=== PATIENT | male | born 1965 | race American Indian/Alaskan Native ===

== ENCOUNTER 2019-05-09 17:55 | Emergency (ER) | payer SELFPAY ==
[2019-05-09 18:02] VITALS: BP 135/96; PULSE 98
[2019-05-09] MEDS ORDERED: Tetracaine HCl/PF 0.5% 4 ML Bottle EYELF ONE (18:39)
[2019-05-09] MEDS ORDERED: Balanced Salt Solution Ophth Irrig 30 ML Bottle EYELF ONE (18:41)
[2019-05-09] MEDS ORDERED: Bacitracin/Neomycin/Polymyxin B Oint 0.9 GM U/D Packet TOP ONE (19:44)
[2019-05-09] MEDS ORDERED: Bacitracin/Polymyxin B Ophth Oint 3.5 GM Tube ONE (19:54)
--- NOTE | 2019-05-09 20:33 | EDM.PDOC ---
ED HPI GENERAL MEDICAL PROBLEM - General Chief Complaint: ENT Problem Stated Complaint: eye redness, blurred vision Time Seen by Provider: 05/09/19 18:20 Source of Information: Reports: Patient History Limitations: Reports: No Limitations - History of Present Illness INITIAL COMMENTS - FREE TEXT/NARRATIVE: Patient is a 53-year-old who works [employer] states that for the last 3 or 4 days he's had irritation of his right eye he came in with increased eye pain and irritation Onset: Gradual Duration: Day(s):, Getting Worse Location: Reports: Head Quality: Reports: Ache, Burning, Throbbing Severity: Mild Improves with: Reports: None Worsens with: Reports: None Associated Symptoms: Reports: Other (Bladder vision) Treatments DEVELOPMENT ENG: Reports: NSAIDS Right Eye Pain Score (Numeric/FACES): 8 Headache Pain Score (Numeric/FACES): 8 - Related Data Allergies Allergy/AdvReac Type Severity Reaction Status Date / Time No Known Allergies Allergy Verified 05/09/19 17:58 Home Meds: Home Meds Acetaminophen 1,000 mg PO Q4HR PRN 11/10/15 [History] amLODIPine [Norvasc] 10 mg PO QAM 11/08/16 [History] Naproxen Sodium [Aleve] 440 mg PO BID PRN 05/09/19 [History] Past Medical History HEENT History: Reports: Other (See Below) Cardiovascular History: Reports: Hypertension - Infectious Disease History Infectious Disease History: Reports: Chicken Pox - Past Surgical History HEENT Surgical History: Reports: Oral Surgery Social & Family History - Caffeine Use Caffeine Use: Reports: Coffee, Soda Caffeine Use Comment: 5-6 cans Mt. dew per day. pot a coffe per day ED ROS GENERAL - Review of Systems Review Of Systems: See Below Constitutional: Reports: No Symptoms HEENT: Reports: No Symptoms Respiratory: Reports: No Symptoms Cardiovascular: Reports: No Symptoms Endocrine: Reports: No Symptoms GI/Abdominal: Reports: No Symptoms : Reports: No Symptoms Musculoskeletal: Reports: No Symptoms Skin: Reports: No Symptoms Neurological: Reports: No Symptoms Psychiatric: Reports: No Symptoms Hematologic/Lymphatic: Reports: No Symptoms Immunologic: Reports: No Symptoms ED EXAM GENERAL W FULL EYE - Physical Exam Exam: See Below Exam Limited By: No Limitations General Appearance: Alert, WD/WN, No Apparent Distress Eye Exam: Bilateral Eye: EOMI, PERRL Eyelids: Bilateral: Normal Appearance Conjunctiva & Sclera: Right: Conjunctival Edema, Subconjuctival Hemorrhage Cornea Exam: Right: Corneal Abrasion, Examined with Flourescein Pupillary Size: Left: 3 mm Pupillary Reaction: Right: Brisk Ears: Normal External Exam, Normal Canal, Hearing Grossly Normal, Normal TMs Nose: Normal Inspection, Normal Mucosa, No Blood Throat/Mouth: Normal Inspection, Normal Lips, Normal Teeth, Normal Gums, Normal Oropharynx, Normal Voice, No Airway Compromise Head: Atraumatic, Normocephalic Neck: Normal Inspection, Supple, Non-Tender, Full Range of Motion Respiratory/Chest: No Respiratory Distress, Lungs Clear, Normal Breath Sounds, No Accessory Muscle Use, Chest Non-Tender Cardiovascular: Normal Peripheral Pulses, Regular Rate, Rhythm, No Edema, No Gallop, No JVD, No Murmur, No Rub GI/Abdominal: Normal Bowel Sounds, Soft, Non-Tender, No Organomegaly, No Distention, No Abnormal Bruit, No Mass Back Exam: Normal Inspection, Full Range of Motion, NT Extremities: Normal Inspection, Normal Range of Motion, Non-Tender, Normal Capillary Refill, No Pedal Edema Neurological: Alert, Oriented, CN II-XII Intact, Normal Cognition, Normal Gait, Normal Reflexes, No Motor/Sensory Deficits Psychiatric: Normal Affect, Normal Mood Skin Exam: Warm, Dry, Intact, Normal Color, No Rash Course - Vital Signs Last Recorded V/S: Last Vital Signs Temp 98 F 05/09/19 17:58 Pulse 98 05/09/19 17:58 Resp 20 05/09/19 17:58 BP 135/96 H 05/09/19 17:58 Pulse Ox 99 05/09/19 17:58 - Orders/Labs/Meds Meds: Medications Discontinued Medications Generic Name Dose Route Start Last Admin Trade Name Freq PRN Reason Stop Dose Admin Bacitracin/Polymyxin B Sulfate 1 gm 05/10/19 08:00 Polysporin Ophth Oint EYERT TID JAMEEL Bacitracin/Polymyxin B Sulfate Confirm 05/09/19 19:54 05/09/19 19:59 Polysporin Ophth Oint Administered 05/09/19 19:55 1 applic Dose Administration 3.5 gm .ROUTE .STK-MED ONE Balanced Salt Solution 10 ml 05/09/19 18:41 05/09/19 18:52 Eye Stream Eye Rinse EYELF 05/09/19 18:42 10 ml ONETIME ONE Administration Neomycin/Polymyxin/Bacitracin 1 each 05/09/19 19:44 Triple Antibiotic Oint TOP 05/09/19 19:45 ONETIME ONE Tetracaine HCl 1 ml 05/09/19 18:39 05/09/19 18:53 Tetracaine 0.5% Steri-Unit Brenda EYELF 05/09/19 18:40 1 ml ASDIRECTED ONE Administration Departure - Departure Time of Disposition: 20:33 Disposition: Home, Self-Care 01 Condition: Fair Clinical Impression: Corneal abrasion - Discharge Information *PRESCRIPTION DRUG MONITORING PROGRAM REVIEWED*: No *COPY OF PRESCRIPTION DRUG MONITORING REPORT IN PATIENT THOMAS: No Referrals: Edie Sterling PA-C [Primary Care Provider] - Care Plan Goals: Patient was seen I examined reveal corneal abrasion at this time we went ahead and applied triple antibiotic ointment to the eye and eye and patched start him on Toradol 10 mg by mouth every 6 hours for pain he is to follow-up with rda if I continues to be painful or blurred vision.
[2019-05-10] MEDS ORDERED: Bacitracin/Polymyxin B Ophth Oint 3.5 GM Tube EYERT SCH (08:00)
== END 2019-05-09 20:40 | disposition home or self-care (01) ==
LOC: LL.ED 17:55
DX: S05.01XA Injury of conjunctiva and corneal abrasion without foreign body, right eye, initial encounter (principal); H11.31 Conjunctival hemorrhage, right eye; I10 Essential (primary) hypertension; Z98.890 Other specified postprocedural states; X58.XXXA Exposure to other specified factors, initial encounter
CPT/HCPCS: 99283; A9270